=== PATIENT | female | born 1960 | race Caucasian/White ===

== ENCOUNTER → 2017-12-22 | Day surgery (SDC) | payer BC ==
[2017-12-22 09:20] VITALS: RESP 16; BMI 27.4
[2017-12-22 11:14] VITALS: BP 123/79; PULSE 64; TEMP 98.2
--- NOTE | 2017-12-23 17:25 | MM ---
EXAMINATION TYPE: MG stereo VAD BX RT DATE OF EXAM: 12/22/2017 COMPARISON: Outside mammogram 11/28/2017. CLINICAL HISTORY: Abnormal mammogram TECHNIQUE: Stereotactic guided core biopsy of right breast. FINDINGS: The procedure of stereotactic guided core biopsy was explained to the patient. Benefits, a lternatives, and risks were discussed. An informed consent was then obtained. The [facility] pathway for biopsy was chosen. Shortness pathway was lateral approach. Radiology perfo rmed the localization Dr. Granados performed the remainder of the procedure. A vacuum assisted biopsy gun was used to obtain multiple core samples. Following a complete new set up of sterile equipment, the targeting was shifted to an adjacent group of calcifications and additional multiple core samples were obtained at a second site directly adjace nt to the first site. Specimens: Initial specimen at the first site had a couple of punctate calcifications. Additional clint ples were obtained at the first site. The second site sample had calcifications. Core markers were placed at each surgical site. Post biopsy mammogram shows the clip to appear in satisfactory position relative to the targeted area of concern on the preprocedure images. The patient tolerated the procedure well without any immediate complication. Discharge instructions were discussed with the patient. The patient was kept in the radiology department for short stay afte r the procedure and then discharged home in stable condition. IMPRESSION: 1. Successful core biopsy 2 adjacent groups of suspicious calcifications right breast separately biop sied. Recommendations: 1. Recommendations are pending pathology results.
== END ==
LOC: RADMAMWWP 09:03
PROVIDERS: ATTEND Family Medicine
DX: L90.5 Scar conditions and fibrosis of skin (principal); N60.91 Unspecified benign mammary dysplasia of right breast; N60.21 Fibroadenosis of right breast; N60.31 Fibrosclerosis of right breast; N60.81 Other benign mammary dysplasias of right breast; R92.0 Mammographic microcalcification found on diagnostic imaging of breast
CPT/HCPCS: 88305; 88342; 19081; 19082; A4648; J2001

== ENCOUNTER → 2018-01-20 | Outpatient (CLI) | payer BC ==
[2018-01-20 13:26] VITALS: BP 121/79; PULSE 71; BMI 25.8
--- NOTE | 2018-01-20 14:11 | P.GSHP ---
History of Present Illness H&P Date: 01/20/18 The patient is a 57-year-old white female who on a routine screening mammogram was noted to have some areas of microcalcifications in the right breast. 2 of these areas were sampled and the one most posterior was noted to contain some ductal carcinoma in situ. The more anterior lesion revealed proliferative fibrocystic changes including radial scar/complex sclerosing lesion with associated calcifications moderate to florid type ductal hyperplasia, sclerosing adenosis, columnar cell hyperplasia, fibrosis, cyst, and apocrine metaplasia. The patient had not noted any changes in her breast. Her last mammogram was over 10 years ago. The patient did not complain of any nipple discharge or skin changes. The patient has had no recent trauma to the breast or infections in the breast. Family history: Mother: Skin cancer Father: Skin cancer Hormonal history: Menarche: 15 Pregnancies: 3, 2 live births, first at 31 she did breast-feed control pills: 10 years Hormones: Negative Menopause: 55 Past surgical history: 1. Oral surgery 2. Knee surgery Past medical history: 1. Arthritis Social history Smoking: Negative Alcohol: Negative Drugs: Negative - Constitutional Constitutional: Denies chills, Denies fever - EENT Eyes: denies blurred vision, denies pain Ears: bilateral: decreased hearing Ears, nose, mouth and throat: Denies headache, Denies sore throat - Breasts Breasts: bilateral: as per HPI - Cardiovascular Cardiovascular: Denies chest pain, Denies shortness of breath - Respiratory Respiratory: Denies cough, Denies 7 - Gastrointestinal Gastrointestinal: Denies abdominal pain, Denies diarrhea, Denies nausea, Denies vomiting - Genitourinary (Female) Genitourinary: Denies dysuria, Denies hematuria - Menstruation Menstruation: Reports postmenopausal - Musculoskeletal Comment: arthritis - Integumentary Integumentary: Denies pruritus, Denies rash - Neurological Comment: carpel tunnel Neurological: Denies numbness, Denies weakness - Psychiatric Psychiatric: Denies anxiety, Denies depression - Endocrine Endocrine: Denies fatigue, Denies weight change - Hematologic/Lymphatic Comment: none - Allergic/Immunologic Allergic/Immunologic: Reports seasonal allergies Past Medical History Past Medical History: No Reported History History of Any Multi-Drug Resistant Organisms: None Reported Past Surgical History: Orthopedic Surgery Additional Past Surgical History / Comment(s): Right knee arthroscopic Past Anesthesia/Blood Transfusion Reactions: Motion Sickness Past Psychological History: No Psychological Hx Reported Smoking Status: Never smoker Past Alcohol Use History: None Reported Past Drug Use History: None Reported Medications and Allergies Home Medications Medication Instructions Recorded Confirmed Type Ascorbic Acid/Multivit-Min 1 each PO DAILY 12/21/17 01/20/18 History [Emergen-C 1,000 mg Packet] Allergies Allergy/AdvReac Type Severity Reaction Status Date / Time No Known Allergies Allergy Verified 12/22/17 09:14 Surgical - Exam Vital Signs Pulse BP Pulse Ox 71 121/79 99 01/20/18 13:21 01/20/18 13:21 01/20/18 13:21 - General well developed, well nourished, no distress - Eyes normal ocular movement, no icteric - ENT no hearing loss, no congestion - Neck no masses, trachea midline - Respiratory normal respiratory effort, clear to auscultation - Cardiovascular Rhythm: regular Heart Sounds: normal: S1, S2 - Abdomen Abdomen: soft, non tender, no guarding, no rigid, no rebound - Neurologic no disoriented, no combative - Musculoskeletal normal gait, normal posture - Psychiatric oriented to time, oriented to person, oriented to place, speech is normal, memory intact Breast examination: Right breast: Multi-positional exam no dominant mass or nodule is of concern, small puncture sites were stereotactic biopsies were performed Right axilla: No adenopathy of concern Left breast: Multiple positional exam no dominant masses or nodules of concern Left axilla: No adenopathy of concern Results Mammogram of both right and left breast reviewed with radiology Assessment and Plan Assessment: Impression/plan: 1. 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 Anterior sterile tachycardia core biopsy site benign 3. Additional microcalcifications noted in the right breast for which dear tachycardia core biopsy has been recommended 4. Arthritis Plan: 1. Cc and lateral magnification views of right breast to ascertain which additional microcalcification should be targeted for stereotactic biopsy 2. Surgical intervention regarding ductal carcinoma in situ of the right breast after we know results of additional areas for biopsy The stereotactic core biopsy has been discussed with the patient. She will be scheduled for this in the near future. After we have all of the results we will discuss definitive treatment Lisseth lumpectomy and radiation therapy or mastectomy with reconstruction. Cc: Taniya Alvarenga
== END ==
LOC: WWCWWP 13:12
PROVIDERS: ATTEND Surgery
DX: Z53.9 Procedure and treatment not carried out, unspecified reason (principal)

== ENCOUNTER → 2018-02-06 | Day surgery (SDC) | payer BC ==
[2018-02-06 09:53] VITALS: RESP 16; BMI 25.8
--- NOTE | 2018-02-06 12:23 | PCN ---
PROCEDURE NOTE PREPROCEDURE DIAGNOSIS: Mammographic microcalcifications of concern in the inferior lateral aspect of the right breast. Radiographs were reviewed with the radiologist and the patient was examined and on physical exam, no dominant mass or nodules of concern were identified. She has recently had 2 separate areas of calcification sampled in the breast, one being ductal carcinoma in situ and the other fibrocystic breast changes including radial scar/complex sclerosing lesion with associated calcifications of moderate to florid type ductal hyperplasia, sclerosing adenosis, columnar cell hyperplasia, fibrosis, cysts, and apocrine metaplasia. The additional area of microcalcifications was felt to be somewhat distant from the notes, which had been sampled and it was recommended that this be sampled prior to definitive treatment of the area of ductal carcinoma in situ. Risks and benefits of the procedure were discussed with the patient. The alternative of excising this area at the time of surgical treatment was also entertained. However, it was distant enough from the initial site that it was felt that it would benefit the patient to obtain a stereotactic core biopsy. The patient was brought to the Lor[facility] table and the area was targeted. An approach from a cc from below was chosen. The area was targeted and a petite 9-gauge vacuum-assisted core biopsy needle was chosen. The skin was prepped using Betadine; 10 mL of 1% lidocaine were used to anesthetize the skin and a second syringe of 10 mL was attached to the biopsy unit which would inject the local anesthetic as the procedure progressed. The needle was driven to the correct coordinates: however, on the postfire x-rays there was concern that this was in the wrong location and the lesion should be re-targeted. The lesion was therefore we re-targeted in the similar fashion. The needle was again a 9-gauge petite vacuum-assisted core biopsy needle and the needle was able to be inserted through the same skin puncture site. The needle was driven to the correct coordinates and pre and postfire films were obtained. In the postfire films there was some concern that the lesion was deeper within the breast and the needle was driven to deeper coordinates. This was after an initial core biopsies were obtained and radiograph of the specimen did not reveal the lesion to be present in the specimen. Therefore, the was taken to a more positive value and again additional sampling did not reveal the specimen of concern to be present. We therefore removed the needle and the lesion was completely re-targeted again. Following this, a 9-gauge core biopsy needle was obtained. This was not a petite needle. This was a vacuum-assisted needle. The needle was driven to the correct coordinates. Prior to this, following the biopsy, a secure deepak top-hat block bench hand had been placed and the lesion was noted to be deeper in the breast then, this area of sampling. After the needle had been driven to the correct coordinates, pre- and postfire films were obtained and appeared to be in good location to sample the specimen. Multiple core biopsies were obtained, approximately 12. Radiograph of the specimen revealed the calcifications of concern had been removed. A secure deepak top-hat block bench hand was placed and was noted to be in the correct location. The patient tolerated the procedure in stable condition with no immediate post procedure complications. MMODL / IJN: [id number] /
--- NOTE | 2018-02-06 12:50 | PCN ---
PROCEDURE NOTE PREPROCEDURE DIAGNOSIS: Mammographic abnormality, right breast area of microcalcifications of concern in the deep, slightly medial portion of the breast. The radiographs were reviewed with Radiology. On physician exam, no dominant mass or nodules of concern on multi-positional exam in the breast. The patient has had prior stereo biopsies performed, which revealed an area of DCIS and this was an additional area which Radiology recommended be sampled prior to any surgical intervention. The patient was brought to the stereotactic core biopsy room. She was placed on the Lorad table. The area of concern in the right breast was identified. The breast was prepped using Betadine; 1% lidocaine approximately 16 mL was used to anesthetize the area of concern. A 9-gauge vacuum-assisted core biopsy needle was driven to the correct coordinates. Prefire films were obtained. The needle was fired and postfire films were obtained as well. The multiple core biopsies were obtained. Radiograph of the specimen revealed the area of concern had been sampled. A TriMark marking clip was left behind. The patient tolerated the procedure in stable condition. No immediate postprocedure complications were identified. The specimen was sent to Pathology and the patient will follow with Dr. Powers in 1 week. Approximately 12 core biopsy samples were obtained. Risks and benefits of the procedure were discussed with the patient prior to the procedure and alternatives as well. MMODL / IJN: [id number] /
[2018-02-06 13:55] VITALS: BP 124/82; PULSE 54; TEMP 98.5
--- NOTE | 2018-02-06 18:13 | MM ---
EXAMINATION TYPE: MG stereo VAD BX RT, MG stereo VAD BX addl RT DATE OF EXAM: 02/06/2018 COMPARISON: 12/22/2017 and 11/28/2017 CLINICAL HISTORY: 57-year-old female with biopsy-proven DCIS in the right breast referred for biopsy of additional sites of microcalcification prior to surgical intervention. TECHNIQUE: Stereotactic guided core biopsy of the right breast. FINDINGS: The procedure of stereotactic guided core biopsy was explained to the patient. Benefits, alternatives, and risks were discussed. An informed consent was then obtained. SITE A: Posterior, lateral, and inferior - The shortness pathway for biopsy was chosen. Shortness pathway was CC from below approach. I performed the localization, then surgeon, Dr. Gio Ca performed the remainder of the procedure. A vacuum assisted biopsy gun was used to obtain multiple core samples. SITE B: Central - The shortness pathway for biopsy was chosen. Shortness pathway was CC from above approach. I performed the localization, then surgeon, Dr. Gio Ca performed the remainder of the procedure. A vacuum assisted biopsy gun was used to obtain multiple core samples. The patient tolerated the procedure well without any immediate complication. The patient was kept in the radiology department for short stay after the procedure and then discharged home in stable condition. Targeted calcifications are identified in specimen mammogram. Post biopsy mammogram shows the clip to appear in satisfactory position relative to the targeted area of concern on the preprocedure images. 2 microclips are present medially from recent biopsy. The clip located slightly more posterior corresponds to the site of biopsy-proven DCIS. IMPRESSION: SUCCESSFUL, UNCOMPLICATED STEREOTACTIC GUIDED CORE BIOPSY OF 2 ADDITIONAL MASONRY INSPECTOR SITES OF MICROCALCIFICATIONS SEPARATE FROM THE AREA OF BIOPSY PROVEN DCIS IN THE RIGHT BREAST; FULL PATHOLOGY RESULTS TO FOLLOW. Pathology Results: Malignant A. BREAST, RIGHT LATERAL POSTERIOR, STEREOTACTIC CORE BIOPSY: Fibrocystic changes including dense stromal fibrosis, cysts and sclerosing adenosis. B. BREAST, RIGHT LATERAL POSTERIOR ADDITIONAL, STEREOTACTIC CORE BIOPSY: Fibrocystic changes including dense stromal fibrosis, cysts, sclerosing adenosis , columnar cell change, mild papillary usual type ductal hyperplasia and calcifications. Focal scar and fat necrosis. C. BREAST, RIGHT CENTRAL, STEREOTACTIC CORE BIOPSY: Fibrocystic changes including dense stromal fibrosis, sclerosing adenosis, cysts, columnar cell change, focal mild papillary usual type ductal hyperplasia and calcifications. Focal angiolipomatous changes and scar. Recommendation Surgical consult of the right breast. Concordant, negative for malignancy. Therapy and follow up of prior located DCIS. MTDD
== END ==
LOC: RADMAMWWP 09:33
PROVIDERS: ATTEND Surgery
DX: N60.11 Diffuse cystic mastopathy of right breast (principal); N60.21 Fibroadenosis of right breast; N60.91 Unspecified benign mammary dysplasia of right breast; N63.10 Unspecified lump in the right breast, unspecified quadrant; R92.1 Mammographic calcification found on diagnostic imaging of breast; N64.1 Fat necrosis of breast
CPT/HCPCS: 88305; 19081; 19082; A4648; J2001

== ENCOUNTER → 2018-02-16 | Outpatient (CLI) | payer BC ==
[2018-02-16 10:25] VITALS: BP 128/80; PULSE 72; RESP 98; BMI 25.8
--- NOTE | 2018-02-16 11:16 | P.GSHP ---
History of Present Illness H&P Date: 02/16/18 The patient is a 57-year-old white female who underwent routine screening exam was noted to have some area of increased calcification in the right breast. 4 areas were sampled one of which at 8:30 in the posterior of the right breast revealed ductal carcinoma in situ. The remaining areas were benign. The patient has not noted any changes in her breast last mammogram prior to this was over 10 years ago. The patient did not noted any lumps or masses in her breast nor any nipple discharge or changes. Family history: Mother: Skin cancer Father: Skin cancer Hormonal history: Menarche: 15 Pregnancies: 3, 2 live births, first a 31 she did not she did breast-feed control pills: 10 years Hormones: Negative Menopause: 55 Past surgical history: 1. Oral surgery 2. Knee surgery Past medical history: 1 arthritis Social history: Smoking: Negative Alcohol: Negative Drugs: Negative - Constitutional Constitutional: Denies chills, Denies fever - EENT Eyes: denies blurred vision, denies pain Ears: bilateral: decreased hearing (possible small amount bilateral), deny: tinnitus Ears, nose, mouth and throat: Denies headache, Denies sore throat - Breasts Breasts: bilateral: as per HPI - Cardiovascular Cardiovascular: Denies chest pain, Denies shortness of breath - Respiratory Respiratory: Denies cough, Denies 7 - Gastrointestinal Gastrointestinal: Denies abdominal pain, Denies diarrhea, Denies nausea, Denies vomiting - Genitourinary (Female) Genitourinary: Denies dysuria, Denies hematuria - Menstruation Menstruation: Reports postmenopausal - Musculoskeletal Comment: arthritis - Integumentary Integumentary: Denies pruritus, Denies rash - Neurological Neurological: Denies numbness, Denies weakness - Psychiatric Psychiatric: Denies anxiety, Denies depression - Endocrine Endocrine: Reports fatigue, Denies weight change - Hematologic/Lymphatic Comment: none - Allergic/Immunologic Allergic/Immunologic: Reports seasonal allergies Past Medical History Past Medical History: Cancer Additional Past Medical History / Comment(s): Right breast DCIS 12/2017 History of Any Multi-Drug Resistant Organisms: None Reported Past Surgical History: Orthopedic Surgery Additional Past Surgical History / Comment(s): Right knee arthroscopic, oral surgery at "age 13 or 14" Past Anesthesia/Blood Transfusion Reactions: Motion Sickness Past Psychological History: No Psychological Hx Reported Smoking Status: Never smoker Past Alcohol Use History: None Reported Past Drug Use History: None Reported Medications and Allergies Home Medications Medication Instructions Recorded Confirmed Type Ascorbic Acid/Multivit-Min 1 each PO DAILY 12/21/17 02/16/18 History [Emergen-C 1,000 mg Packet] Calcium Carbonate/Vitamin D3 1 each PO DAILY 01/24/18 02/16/18 History [Calcium 600-Vit D3 500 Softgel] Magnesium Chloride [Slow Mag] 128 mg PO DAILY 01/24/18 02/16/18 History Allergies Allergy/AdvReac Type Severity Reaction Status Date / Time No Known Allergies Allergy Verified 02/06/18 09:48 Surgical - Exam Vital Signs Pulse Resp BP 72 12 128/80 02/16/18 10:20 02/16/18 10:20 02/16/18 10:20 - General well developed, no distress - Eyes normal ocular movement - ENT no hearing loss, no congestion - Neck no masses, trachea midline - Respiratory normal respiratory effort, clear to auscultation - Cardiovascular Rhythm: regular Heart Sounds: normal: S1, S2 - Abdomen Abdomen: soft, non tender, no guarding, no rigid, no rebound - Neurologic no disoriented, no combative - Psychiatric oriented to time, oriented to person, oriented to place, speech is normal, memory intact Breast examination: Right breast: no dominant masses or nodules of concern, there is some ecchymosis near site of recent stereotactic core biopsy in the inferior outer aspect of the breast Right axilla: No adenopathy of concern Left breasts: No dominant masses or nodules of concern Left axilla: No adenopathy of concern Results Pathology reviewed, mammogram reviewed Assessment and Plan Assessment: Impression: 1. DCIS 8:30 position posterior region of right breast 2. Arthritis Plan: 1. Needle localization lumpectomy right breast 2. Medical management of arthritis Risk and benefits of needle localization and excision are discussed with the patient including the option of a mastectomy instead of lumpectomy for which she would not been require radiation. Patient also understands that if there is invasive component to the disease she may require sentinel node biopsy at a later time. The patient wishes to have this taken care of and surgery will be scheduled in the near future. Cc: Dr.Margaret Sanket Freeman, [place], Dr. Dooley
== END ==
LOC: WWCWWP 10:02
PROVIDERS: ATTEND Surgery
DX: Z53.9 Procedure and treatment not carried out, unspecified reason (principal)

== ENCOUNTER → 2018-03-30 | Outpatient (CLI) | payer BC ==
[2018-03-30 12:01] VITALS: BP 125/78; PULSE 90; RESP 18; TEMP 98; BMI 25.8
--- NOTE | 2018-03-30 12:12 | P.PN ---
Progress Note - Text Progress Note Date: 03/30/18 The patient is status post needle localization right breast with right breast lumpectomy for ductal carcinoma in situ. This was performed on [id number]. Pathology revealed a 1.25 mm focus of DCIS. The lesion was a grade 1 lesion. The margins were uninvolved by DCIS. The distance to the closest margin was 0.25 mm at the anterior superior margin. The lesion is ER/NY positive. I discussed with the patient the possibility of anti-hormonal therapy, radiation therapy, and the proximity of the lesion to the closest margin. Her case will be presented at tumor board. The patient has no complaints related to her surgery. Physical examination: Lungs: Clear Heart: Regular rate and rhythm Breasts: Incision clean and dry Impression: 1. 1.25 mm focus of DCIS, 0.25 mm from anterior superior margin line 2. Patient is going to be seen by radiation oncology 3. Patient's couldn't be seen by medical oncology 4. Patient's case to be discussed at tumor board, a final recommendation to be obtained CC:Dr. Dooley
== END ==
LOC: WWCWWP 11:23
PROVIDERS: ATTEND Surgery
DX: Z53.9 Procedure and treatment not carried out, unspecified reason (principal)